=== PATIENT | male | born 1955 | race Caucasian/White ===

== ENCOUNTER 2020-12-18 11:47 | Emergency (ER) | payer MEDICARE, MEDICAID ==
[~2020-12-18] VITALS: Ht 188 cm; Wt 73.0 kg
[2020-12-18 12:00] VITALS: BP 122/91
== END 2020-12-18 13:04 | disposition home or self-care (01) ==
LOC: ER 11:47
DX: K40.90 Unilateral inguinal hernia, without obstruction or gangrene, not specified as recurrent (principal)
CPT/HCPCS: 93005; 99283